=== PATIENT | female | born 1995 | race Hispanic/Latino ===

== ENCOUNTER 2020-05-25 11:29 | Inpatient (IN) | payer SELFPAY ==
[~2020-05-25] VITALS: Ht 157.5 cm; Wt 97.1 kg
[2020-05-25 11:51] LABS: APPEARANCE,URINE Clear (CLEAR); BILIRUBIN,URINE Negative (NEGATIVE); COLOR,URINE Yellow (YELLOW); GLUCOSE, URINE (UA) Negative (NEGATIVE); HCG,QUAL RESULT NEGATIVE (NEGATIVE); KETONES,URINE Negative (NEGATIVE); LEUKOCYTE ESTERASE ,URINE Negative (NEGATIVE); NITRATE,URINE Negative (NEGATIVE); OCCULT BLOOD,URINE Negative (NEGATIVE); PH,URINE 6.5 (5.0-8.0); PROTEIN,URINE Negative (NEGATIVE); UROBILINOGEN,URINE 0.2 mg/dL (0.2-1.0)
[2020-05-25 11:57] LABS: AMPHET/METH SCREEN,URINE NEGATIVE (NEGATIVE); BARBITURATE SCREEN, URINE NEGATIVE (NEGATIVE); BASOPHILS % (AUTO) 0.2 % (0.0-5.0); BENZODIAZEPINES SCREEN,URINE NEGATIVE (NEGATIVE); CANNABINOID SCREEN,URINE POSITIVE (NEGATIVE); CARBON DIOXIDE 25 mmol/L (21-32); CHLORIDE 106 mmol/L (101-111); COCAINE SCREEN,URINE NEGATIVE (NEGATIVE); CREATININE 0.7 mg/dL (0.5-1.5); EOSINOPHILS % (AUTO) 0.7 % (0.0-8.0); GLOMERULAR FILTR. RATE CALC 109 mL/min (>60); GLUCOSE,RANDOM 116 mg/dL (70-105); LYMPHOCYTES % (AUTO) 34.2 % (21.0-51.0); MEAN CORPUSCULAR HEMOGLOBIN 29.3 pg (27.0-33.0); MEAN CORPUSCULAR HGB CONC 34.2 g/dL (32.0-36.0); MEAN CORPUSCULAR VOLUME 85.8 fL (79-99); MONOCYTES % (AUTO) 8.3 % (3.0-13.0); NEUTROPHILS % (AUTO) 56.3 % (40.0-77.0); OPIATE SCREEN,URINE NEGATIVE (NEGATIVE); PHENCYCLIDINE SCREEN,URINE NEGATIVE (NEGATIVE); PLATELET COUNT (AUTO) 242 K/uL (130-400); POTASSIUM 3.8 mmol/L (3.5-5.1); RED BLOOD CELL COUNT(AUTO) 4.43 MIL/uL (4.00-5.50); SODIUM SERUM 140 mmol/L (136-145); UREA NITROGEN, BLOOD 5 mg/dL (7-18)
[2020-05-25 12:04] LABS: ALANINE AMINOTRANSFERASE 37 U/L (12-78); ALBUMIN 4.1 g/dL (3.5-5.0); ASPARTATE AMINOTRANSFERASE 22 U/L (10-37); BILIRUBIN,TOTAL 0.4 mg/dL (0.2-1.0); CREATINE KINASE, TOTAL 191 U/L (21-232); TOTAL PROTEIN, SERUM 6.9 g/dL (6.0-8.3)
[2020-05-25 12:06] LABS: ACETAMINOPHEN < 1 mcg/mL (10-30); SALICYLATE < 2.8 mg/dL (2.8-20.0)
[2020-05-25] MEDS ORDERED: SODIUM CHLORIDE 0.9% 1000ML 2,000 ML IV ONE (12:07)
[2020-05-25] MEDS ORDERED: CHARCOAL/AQUA 25 GM/120 ML TUBE ONE (12:24)
[2020-05-25] MEDS: CHARCOAL/AQUA 25 GM/120 ML TUBE PO SCH (12:30)
[2020-05-25] MEDS ORDERED: SODIUM CHLORIDE 0.9% 1000ML 1,000 ML IV ONE (13:39)
[2020-05-25] MEDS: GLUCAGON 1MG KIT 1 MG ML IV SCH (17:00)
[2020-05-25] MEDS ORDERED: GLUCAGON 1MG KIT 1 MG ML ONE (18:30)
[2020-05-25] MEDS ORDERED: ONDANSETRON HCL 4 MG/2 ML VIAL ONE (18:46)
[2020-05-26] VITALS (28 sets, daily range): BP systolic 101–126; BP diastolic 57–86
[2020-05-26] MEDS ORDERED: SODIUM CHLORIDE 0.9% 1000ML 1,000 ML IV ONE ×3 (03:34→09:46)
[2020-05-26 06:41] LABS: BASOPHILS % (AUTO) 0.1 % (0.0-5.0); EOSINOPHILS % (AUTO) 0.8 % (0.0-8.0); HEMATOCRIT 32.1 % (36-48); LYMPHOCYTES % (AUTO) 34.5 % (21.0-51.0); MEAN CORPUSCULAR HGB CONC 34.6 g/dL (32.0-36.0); MEAN CORPUSCULAR VOLUME 86.8 fL (79-99); MONOCYTES % (AUTO) 5.9 % (3.0-13.0); NEUTROPHILS % (AUTO) 58.3 % (40.0-77.0); PLATELET COUNT (AUTO) 192 K/uL (130-400); RED CELL DISTRIBUTION WIDTH 14.4 % (11.0-15.5); WHITE BLOOD COUNT (AUTO) 7.8 K/uL (4.8-10.8)
[2020-05-26 06:50] LABS: CREATININE 0.7 mg/dL (0.5-1.5); POTASSIUM 3.8 mmol/L (3.5-5.1)
[2020-05-26] MEDS: CHARCOAL/AQUA 25 GM/120 ML TUBE PO SCH (12:30)
[2020-05-26] MEDS ORDERED: HYDROXYZINE HCL 25 MG TABLET PO PRN (15:00)
[2020-05-26] MEDS: HYDROXYZINE HCL 25 MG TABLET PO SCH ×3 (15:30→20:00)
[2020-05-26] MEDS: GLUCAGON 1MG KIT 1 MG ML IV SCH (17:00)
[2020-05-27 00:08] VITALS: BP 103/58
[2020-05-27 04:08] VITALS: BP 92/58
[2020-05-27 08:00] VITALS: BP 109/73
[2020-05-27] MEDS: HYDROXYZINE HCL 25 MG TABLET PO SCH (08:51)
[2020-05-27] MEDS ORDERED: HYDR-3421 PO (10:01)
[2020-05-27] MEDS: CHARCOAL/AQUA 25 GM/120 ML TUBE PO SCH (11:35)
[2020-05-27 12:00] VITALS: BP 122/83
[2020-05-27 16:00] VITALS: BP 131/86
[2020-05-27] MEDS: GLUCAGON 1MG KIT 1 MG ML IV SCH (17:00)
== END 2020-05-27 18:20 | disposition home or self-care (01) | DRG 918 ==
LOC: EDH 11:29 → EDHIP 11:30 → 2CH 05-26 02:04 → 3BH 05-26 15:35
PROVIDERS: ADMIT Internal Medicine; ATTEND Internal Medicine
DX: T44.7X2A Poisoning by beta-adrenoreceptor antagonists, intentional self-harm, initial encounter (principal); E87.2 Acidosis; F12.90 Cannabis use, unspecified, uncomplicated; F31.9 Bipolar disorder, unspecified; F41.0 Panic disorder [episodic paroxysmal anxiety]; I95.9 Hypotension, unspecified; F43.10 Post-traumatic stress disorder, unspecified; Z79.899 Other long term (current) drug therapy; Z83.3 Family history of diabetes mellitus; Y92.89 Other specified places as the place of occurrence of the external cause
CPT/HCPCS: 36415; 80048; 80053; 80305; 81003; 81025; 82550; 83605; 85025; 93005; 99291; G0378; G0481; J1610; J2405; J7030